=== PATIENT | male | born 1975 | race Caucasian/White ===

== ENCOUNTER → 2020-11-10 | Outpatient (CLI) | payer BC | LOC: KOH-I 13:00 → EMI 13:00 | DX: M54.5 Low back pain (principal); M25.78 Osteophyte, vertebrae; M51.36 Other intervertebral disc degeneration, lumbar region; M48.07 Spinal stenosis, lumbosacral region; M48.061 Spinal stenosis, lumbar region without neurogenic claudication; M43.17 Spondylolisthesis, lumbosacral region | CPT/HCPCS: 72148 ==